=== PATIENT | female | born 1935 ===

== ENCOUNTER 2021-07-17 12:15 | Inpatient (IN) | payer OTHER ==
[~2021-07-17] VITALS: Ht 152.4 cm; Wt 72.6 kg
[2021-07-17] MEDS ORDERED: COZAAR100 MG PO (14:09)
[2021-07-17] MEDS ORDERED: SIMVASTATIN10 MG PO (14:10)
[2021-07-17] MEDS ORDERED: ADULT LOW DOSE81 M1 PO (14:10)
[2021-07-17] MEDS ORDERED: PRESERVISION A1 EAC2 PO (14:10)
[2021-07-17] MEDS ORDERED: ANTIVERT PO (14:11)
[2021-07-23] MEDS ORDERED: MECLIZINE HCL12.5 MG PO (11:10)
== END 2021-07-25 20:18 | disposition home or self-care (01) | DRG 394 ==
LOC: O/R 07-23 08:20 → SURH 07-23 08:20
PROVIDERS: ADMIT Colon & Rectal Surgery; ATTEND Colon & Rectal Surgery
PROC: 3E0F7SF Introduction of Other Gas into Respiratory Tract, Via Natural or Artificial Opening (ICD-10-PCS; 2021-07-23)
PROC: 0DBP8ZZ Excision of Rectum, Via Natural or Artificial Opening Endoscopic (ICD-10-PCS; principal; 2021-07-23 13:15)
DX: D12.8 Benign neoplasm of rectum (principal); K92.1 Melena; K62.9 Disease of anus and rectum, unspecified; E78.5 Hyperlipidemia, unspecified; I11.9 Hypertensive heart disease without heart failure; I44.7 Left bundle-branch block, unspecified; C50.911 Malignant neoplasm of unspecified site of right female breast